=== PATIENT | female | born 1960 | race Caucasian/White ===

== ENCOUNTER 2017-11-18 20:17 | Emergency (ER) | payer OTHER ==
[~2017-11-18] VITALS: Ht 175.3 cm; Wt 62.1 kg
[2017-11-18 20:29] VITALS: Ht 175.3 cm; Wt 62.1 kg
[2017-11-18 22:56] VITALS: BP 136/90
== END 2017-11-18 22:56 | disposition home or self-care (01) ==
LOC: ED 20:17
DX: S00.33XA Contusion of nose, initial encounter (principal); S20.219A Contusion of unspecified front wall of thorax, initial encounter; X58.XXXA Exposure to other specified factors, initial encounter; Y93.89 Activity, other specified; Y92.89 Other specified places as the place of occurrence of the external cause; Y99.8 Other external cause status
CPT/HCPCS: 99406; J1885

== ENCOUNTER 2018-02-26 11:53 | Emergency (ER) | payer OTHER ==
[~2018-02-26] VITALS: Ht 175.3 cm; Wt 67.1 kg
[2018-02-26 12:08] VITALS: BP 130/84; Ht 175.3 cm; Wt 67.1 kg
== END 2018-02-26 13:05 | disposition home or self-care (01) ==
LOC: ED 11:53
DX: L03.115 Cellulitis of right lower limb (principal); R03.0 Elevated blood-pressure reading, without diagnosis of hypertension; F90.9 Attention-deficit hyperactivity disorder, unspecified type; F32.9 Major depressive disorder, single episode, unspecified
CPT/HCPCS: 90715

== ENCOUNTER 2019-02-23 11:25 | Emergency (ER) | payer OTHER ==
[~2019-02-23] VITALS: Ht 175.3 cm; Wt 67.6 kg
[2019-02-23 11:43] VITALS: Ht 175.3 cm; Wt 67.6 kg
[2019-02-23 12:44] VITALS: BP 130/82
== END 2019-02-23 12:44 | disposition home or self-care (01) ==
LOC: ED 11:25
DX: L02.414 Cutaneous abscess of left upper limb (principal); F17.200 Nicotine dependence, unspecified, uncomplicated; F32.9 Major depressive disorder, single episode, unspecified; F90.9 Attention-deficit hyperactivity disorder, unspecified type; Z88.2 Allergy status to sulfonamides
CPT/HCPCS: 90715; 99406

== ENCOUNTER 2019-02-27 13:49 | Emergency (ER) | payer OTHER ==
[~2019-02-27] VITALS: Ht 175.3 cm; Wt 65.8 kg
[2019-02-27 13:59] VITALS: BP 148/102; Ht 175.3 cm; Wt 65.8 kg
== END 2019-02-27 16:00 | disposition home or self-care (01) ==
LOC: ED 13:49
DX: T88.1XXA Other complications following immunization, not elsewhere classified, initial encounter (principal); L02.414 Cutaneous abscess of left upper limb; F32.9 Major depressive disorder, single episode, unspecified; F90.9 Attention-deficit hyperactivity disorder, unspecified type; F19.10 Other psychoactive substance abuse, uncomplicated; F17.210 Nicotine dependence, cigarettes, uncomplicated; Z98.890 Other specified postprocedural states; Z88.2 Allergy status to sulfonamides
CPT/HCPCS: 82962

== ENCOUNTER 2019-11-03 16:08 | Emergency (ER) | payer OTHER ==
[~2019-11-03] VITALS: Ht 175.3 cm; Wt 60.8 kg
[2019-11-03 16:13] VITALS: Ht 175.3 cm; Wt 60.8 kg
[2019-11-03 16:43] VITALS: BP 119/83
== END 2019-11-03 16:53 | disposition home or self-care (01) ==
LOC: ED 16:08
DX: G89.29 Other chronic pain (principal); M54.2 Cervicalgia; M54.9 Dorsalgia, unspecified; Z76.0 Encounter for issue of repeat prescription; Z98.890 Other specified postprocedural states; Z88.2 Allergy status to sulfonamides

== ENCOUNTER 2020-04-26 18:08 | Emergency (ER) | payer OTHER, SELFPAY ==
[~2020-04-26] VITALS: Ht 177.8 cm; Wt 62.1 kg
[2020-04-26 18:10] VITALS: Ht 177.8 cm; Wt 62.1 kg
[2020-04-26 19:20] VITALS: BP 123/86
== END 2020-04-26 19:20 | disposition home or self-care (01) ==
LOC: ED 18:08
DX: B34.9 Viral infection, unspecified (principal); Z20.828 Contact with and (suspected) exposure to other viral communicable diseases; Z88.2 Allergy status to sulfonamides; Z98.890 Other specified postprocedural states
CPT/HCPCS: U0003-CS